=== PATIENT | male | born 1940 | race Caucasian/White ===

== ENCOUNTER 2017-02-14 13:31 | Inpatient (IN) | payer MEDICARE, OTHER ==
[~2017-02-14] VITALS: Ht 182.9 cm; Wt 75.2 kg
[2017-02-14 13:40] VITALS: BP 220/107; PULSE 74; RESP 16; TEMP 98.6; O2SAT 100
--- NOTE | 2017-02-14 14:18 | RADRPT ---
EXAM DATE/TIME: 02/14/2017 13:59 [facility] COMPARISON: No previous studies available for comparison. INDICATIONS : Left hip pain, fell MEDICAL HISTORY : None. SURGICAL HISTORY : None. ENCOUNTER: Initial ACUITY: 1 day PAIN SCORE: 8/10 LOCATION: Left Hip FINDINGS: There is a complete fracture of the left femoral neck with slight valgus angulation. CONCLUSION: Femoral neck fracture. Kevin Rajput MD on February 14, 2017 at 14:16 Board Certified Radiologist. This report was verified electronically.
--- NOTE | 2017-02-14 14:19 | RADRPT ---
EXAM DATE/TIME: 02/14/2017 14:01 [facility] COMPARISON: No previous studies available for comparison. INDICATIONS : Left hand pain, fell MEDICAL HISTORY : None. SURGICAL HISTORY : None. ENCOUNTER: Initial ACUITY: 1 day PAIN SCORE: 2/10 LOCATION: Left Hand FINDINGS: No definite fractures, or dislocations are identified. No definite lytic or sclerotic lesion is seen . Slight degenerative arthritis is present within multiple interphalangeal joints and first carpometa carpal joint. CONCLUSION: No definite fracture is seen for technique. Kevin Rajput MD on February 14, 2017 at 14:17 Board Certified Radiologist. This report was verified electronically.
[2017-02-14] MEDS ORDERED: LIDOCAINE HCL 1% 50 ML VIAL INFIL ONE (14:45)
[2017-02-14 14:56] LABS: AUTOMATED NEUTROPHIL # 3.4 TH/MM3 (1.8-7.7); BASOPHIL % 0.4 % (0.0-2.0); EOSINOPHIL % 0.5 % (0.0-4.0); HEMATOCRIT 40.8 % (39.0-51.0); HEMO FLAGS DIFF FINAL; LYMPH % 25.6 % (9.0-44.0); LYMPHOCYTE # 1.3 TH/MM3 (1.0-4.8); MEAN CELL VOLUME 92.4 FL (80.0-100.0); MEAN CORPUSCULAR HEMOGLOBIN 32.8 PG (27.0-34.0); MEAN CORPUSCULAR HGB CONC 35.5 % (32.0-36.0); NEUT % 66.5 % (16.0-70.0); PLATELET COUNT 167 TH/MM3 (150-450); RED BLOOD COUNT 4.42 MIL/MM3 (4.50-5.90); RED CELL DISTRIBUTION WIDTH 12.9 % (11.6-17.2); WHITE BLOOD COUNT 5.1 TH/MM3 (4.0-11.0)
[2017-02-14 15:12] LABS: APTT (PATIENT) 29.9 SEC (24.3-30.1); PROTHROMBIN TIME - PATIENT 11.4 SEC (9.8-11.6)
[2017-02-14 15:18] LABS: BICARBONATE 29.2 MEQ/L (21.0-32.0); POTASSIUM 3.7 MEQ/L (3.5-5.1)
[2017-02-14] MEDS ORDERED: MORPHINE SULFATE 8 MG/ML INJ IV PUSH ONE (15:30)
[2017-02-14 15:45] VITALS: BP 243/113; PULSE 64; RESP 16; O2SAT 95
--- NOTE | 2017-02-14 15:51 | PD ---
HPI Chief Complaint: Fall Time Seen by Provider: 13:47 Travel History International Travel<30 days: No Contact w/Intl Traveler<30days: No Traveled to known affect area: No History of Present Illness HPI Patient is a 76-year-old male who comes in after a trip and fall today. He is complaining of left hand pain as well as left hip pain. He says he was trying to get his walker and that trunk and he misstepped. There is no loss of consciousness. He denies any neck or back pain. He denies any numbness or tingling of his extremities. [facility] Social History Alcohol Use: No Tobacco Use: No Substance Use: No Allergies-Medications (Allergen,Severity, Reaction): Coded Allergies: Sulfa (Verified Allergy, Mild, 02/14/17) Review of Systems Except as stated in HPI: all other systems reviewed are Neg General / Constitutional: No: Fever, Chills Eyes: No: Blurred Vision HENT: No: Headaches, Lightheadedness Cardiovascular: No: Chest Pain or Discomfort Respiratory: No: Shortness of Breath Gastrointestinal: No: Nausea, Vomiting Musculoskeletal: Positive: Pain Skin: No Rash, No Change in Pigmentation Neurologic: No: Weakness, Dizziness Physical Exam Narrative GENERAL: Awake and alert, in no acute distress. SKIN: Focused skin assessment warm/dry. HEAD: Atraumatic. Normocephalic. EYES: Pupils equal and round. No scleral icterus. ENT: No nasal bleeding or discharge. Mucous membranes pink and moist. NECK: Trachea midline. No JVD. No cervical spine tenderness. CARDIOVASCULAR: Regular rate and rhythm. No murmur appreciated. RESPIRATORY: No accessory muscle use. Clear to auscultation. Breath sounds equal bilaterally. GASTROINTESTINAL: Abdomen soft, non-tender, nondistended. MUSCULOSKELETAL: No obvious deformities. No clubbing. No cyanosis. No edema. Left fourth distal phalanx is angulated. Tender to palpation of the left hip. No tenderness to the left knee or ankle. Pedal pulses intact. NEUROLOGICAL: Awake and alert. No obvious cranial nerve deficits. Motor grossly within normal limits. Normal speech. PSYCHIATRIC: Appropriate mood and affect; insight and judgment normal. Data Data Last Documented VS Vital Signs Date Time Temp Pulse Resp B/P Pulse Ox O2 Delivery O2 Flow Rate FiO2 02/14/17 13:50 100 Room Air 02/14/17 13:40 98.6 74 16 220/107 Orders Hand, Complete ([id number]) (02/14/17 ) Hip, Uni(Ap&Lat) W Ap Pelvis (02/14/17 ) Complete Blood Count With Diff (02/14/17 14:32) Basic Metabolic Panel (Bmp) (02/14/17 14:32) Act Partial Throm Time (Ptt) (02/14/17 14:32) Prothrombin Time / Inr (Pt) (02/14/17 14:32) Iv Access Insert/Monitor (02/14/17 14:32) Lidocaine 1% Inj (50 Ml) (Xylocaine 1% I (02/14/17 14:45) Morphine Inj (Morphine Inj) (02/14/17 15:30) Admit Order (Ed Use Only) (02/14/17 ) Labs Laboratory Tests Test 02/14/17 13:45 White Blood Count 5.1 TH/MM3 Red Blood Count 4.42 MIL/MM3 Hemoglobin 14.5 GM/DL Hematocrit 40.8 % Mean Corpuscular Volume 92.4 FL Mean Corpuscular Hemoglobin 32.8 PG Mean Corpuscular Hemoglobin 35.5 % Concent Red Cell Distribution Width 12.9 % Platelet Count 167 TH/MM3 Mean Platelet Volume 7.2 FL Neutrophils (%) (Auto) 66.5 % Lymphocytes (%) (Auto) 25.6 % Monocytes (%) (Auto) 7.0 % Eosinophils (%) (Auto) 0.5 % Basophils (%) (Auto) 0.4 % Neutrophils # (Auto) 3.4 TH/MM3 Lymphocytes # (Auto) 1.3 TH/MM3 Monocytes # (Auto) 0.4 TH/MM3 Eosinophils # (Auto) 0.0 TH/MM3 Basophils # (Auto) 0.0 TH/MM3 CBC Comment DIFF FINAL Differential Comment Prothrombin Time 11.4 SEC Prothromb Time International 1.0 RATIO Ratio Activated Partial 29.9 SEC Thromboplast Time Sodium Level 143 MEQ/L Potassium Level 3.7 MEQ/L Chloride Level 106 MEQ/L Carbon Dioxide Level 29.2 MEQ/L Anion Gap 8 MEQ/L Blood Urea Nitrogen 22 MG/DL Creatinine 0.99 MG/DL Estimat Glomerular Filtration 74 ML/MIN Rate Random Glucose 78 MG/DL Calcium Level 9.0 MG/DL MDM Medical Decision Making Medical Screen Exam Complete: Yes Emergency Medical Condition: Yes Differential Diagnosis Hip fracture versus finger fracture versus finger dislocation versus muscle strain Narrative Course Patient is a 76-year-old male comes in after a fall. Exam shows dislocation of his left fourth finger as well as pain to his left hip. X-ray of the hip performed shows a left femoral neck fracture. There is no fracture of the finger. IV established, labs sent. Labs show no acute abnormalities. Patient given pain medicine. Nerve block performed and finger was relocated and splinted. I spoke with Dr. Sanders's service and they will perform surgery tomorrow morning , he is to be nothing by mouth after midnight. Procedures Procedure Narrative 5 mL of 1% lidocaine used to performed a digital block on the left fourth finger. Traction countertraction was used to relocate the distal phalanx. Patient tolerated the procedure well. Splint applied. Diagnosis Primary Impression: Hip fracture Qualified Code: S72.002A - Hip fracture, left, closed, initial encounter Additional Impression: Finger dislocation Qualified Code: S63.259A - Finger dislocation, initial encounter Admitting Information Admitting Physician Requests: Admit Miri Granados MD Feb 14, 2017 15:51
[2017-02-14 16:22] VITALS: BP 182/88; PULSE 70; RESP 16; O2SAT 96
[2017-02-14] MEDS ORDERED: MIDO5TAB PO (16:51)
[2017-02-14] MEDS ORDERED: TYLE325T PO (16:51)
[2017-02-14] MEDS ORDERED: SINE25TA PO (16:51)
[2017-02-14] MEDS ORDERED: SERO50TA PO (16:51)
[2017-02-14] MEDS ORDERED: [UNRECOGNIZED DRUG - CODE] PO (16:51)
[2017-02-14] MEDS ORDERED: OMEP40CA2 PO (16:51)
[2017-02-14] MEDS ORDERED: ZOLO25TA PO (16:51)
[2017-02-14] MEDS ORDERED: AVOD0.5C PO (16:51)
[2017-02-14] MEDS ORDERED: CHOL1TAB42 PO (16:51)
[2017-02-14] MEDS ORDERED: POLY99.0 EACH EYE (16:51)
[2017-02-14] MEDS ORDERED: REST0.05 EACH EYE (16:51)
--- NOTE | 2017-02-14 17:05 | HHI.HP ---
HPI Service [facility] Hospitalists Primary Care Physician Chiki Sanchez MD Admission Diagnosis Hip Fracture Diagnoses: Chief Complaint: Left hip pain s/p fall Travel History International Travel<30 Days: No Contact w/Intl Traveler <30 Da: No Traveled to Known Affected Are: No History of Present Illness Written by Ariela Cleveland PA-C acting as scribe for Dr. Amezcua on 02/14/17 at 16:45. This is a 76-year-old male with past medical history significant for Parkinson' s disease, orthostatic hypotension, vitamin D deficiency, BPH, anxiety disorder and osteoporosis who presented to [facility] ED complaints of left hip pain following a fall. Patient states he was trying to help his get a walker into the back of their truck when he fell onto the left hand and left hip. He denies any head injury. He denies any loss of consciousness. Imaging obtained in the ED revealed a complete fracture left femoral neck with slight valgus angulation. Imaging of the left hand showed no fracture or dislocation. Patient has elevated blood pressure at this time with a 182/88. He is complaining of uncontrolled left hip pain. Review of Systems Except as stated in HPI: all other systems reviewed are Neg Past Family Social History Past Medical History Parkinson's disease Orthostatic hypotension BPH GERD Anxiety Osteoporosis Vitamin D deficiency Past Surgical History Hemorrhoidectomy Reported Medications Carbidopa/levodopa 25-100 mg tab 2 tablets po TID Selegiline 5mg po BID Avodart 0.5mg daily Midodrine 5mg po TID Tylenol 650mg po q6hr prn Sertraline 25mg po daily Omeprazole 40 mg po daily Seroquel 50mg po hs Restasis one gtt in each eye BID Vitamin D3 2000 units po daily Allergies: Coded Allergies: Sulfa (Verified Allergy, Mild, 02/14/17) Family History Father, diabetes Social History Patient denies any tobacco use. He reports drinking the occasional beer. Denies any illicit drug use. Patient is and lives with his at home. Physical Exam Vital Signs Vital Signs Date Time Temp Pulse Resp B/P Pulse Ox O2 Delivery O2 Flow Rate FiO2 02/14/17 16:22 70 16 182/88 96 Room Air 02/14/17 15:45 64 16 243/113 95 Room Air 02/14/17 13:50 100 Room Air 02/14/17 13:40 98.6 74 16 220/107 100 Physical Exam GENERAL: This is a well-nourished, well-developed patient, in no apparent distress. Awake and alert. SKIN: No rashes, ecchymoses or lesions. Cool and dry. HEAD: Atraumatic. Normocephalic. No temporal or scalp tenderness. EYES: Pupils equal round and reactive. Extraocular motions intact. No scleral icterus. No injection or drainage. ENT: Nose without bleeding or purulent drainage. Throat without erythema, tonsillar hypertrophy or exudate. Uvula midline. Airway patent. NECK: Trachea midline. No lymphadenopathy. Supple, nontender, no meningeal signs. CARDIOVASCULAR: Regular rate and rhythm without murmurs, gallops, or rubs. RESPIRATORY: Clear to auscultation. Breath sounds equal bilaterally. No wheezes , rales, or rhonchi. GASTROINTESTINAL: Abdomen soft, non-tender, nondistended. No hepato-splenomegaly , or palpable masses. No guarding. MUSCULOSKELETAL: 4th digit on left hand is splinted. Left leg is shortened and externally rotated. Posterior tibial and Dorsalis pedis pulses +2 bilaterally. Hand tremors noted. NEUROLOGICAL: Awake and alert. Normal speech. Laboratory Laboratory Tests Test 02/14/17 13:45 White Blood Count 5.1 Red Blood Count 4.42 Hemoglobin 14.5 Hematocrit 40.8 Mean Corpuscular Volume 92.4 Mean Corpuscular Hemoglobin 32.8 Mean Corpuscular Hemoglobin 35.5 Concent Red Cell Distribution Width 12.9 Platelet Count 167 Mean Platelet Volume 7.2 Neutrophils (%) (Auto) 66.5 Lymphocytes (%) (Auto) 25.6 Monocytes (%) (Auto) 7.0 Eosinophils (%) (Auto) 0.5 Basophils (%) (Auto) 0.4 Neutrophils # (Auto) 3.4 Lymphocytes # (Auto) 1.3 Monocytes # (Auto) 0.4 Eosinophils # (Auto) 0.0 Basophils # (Auto) 0.0 CBC Comment DIFF FINAL Differential Comment Prothrombin Time 11.4 Prothromb Time International 1.0 Ratio Activated Partial 29.9 Thromboplast Time Sodium Level 143 Potassium Level 3.7 Chloride Level 106 Carbon Dioxide Level 29.2 Anion Gap 8 Blood Urea Nitrogen 22 Creatinine 0.99 Estimat Glomerular Filtration 74 Rate Random Glucose 78 Calcium Level 9.0 Result Diagram: 02/14/17 1345 02/14/17 1345 Imaging Last Impressions Hip and Pelvis X-Ray 02/14/17 0000 Signed Impressions: Service Date/Time: Tuesday, February 14, 2017 13:59 - CONCLUSION: Femoral neck fracture. Kevin Rajput MD Hand X-Ray 02/14/17 0000 Signed Impressions: Service Date/Time: Tuesday, February 14, 2017 14:01 - CONCLUSION: No definite fracture is seen for technique. Kevin Rajput MD Assessment and Plan Assessment and Plan 76-year-old male with past medical history significant for Parkinson's disease, orthostatic hypotension, vitamin D deficiency, BPH, anxiety disorder and osteoporosis who presented to [facility] ED complaints of left hip pain following a fall. Left femoral neck fracture status post fall - xray of the left hip personally reviewed revealing left femoral neck fracture - Ortho consulted - Dr. Raza already contacted by ED service - pain management - NPO after MN Orthostatic hypotension - Patient is hypotensive presently due to uncontrolled left hip pain - Optimize pain control - Hold home Midodrine for now - monitor BP Parkinson's disease - Resume home Sinemet and Eldepryl Other chronic medical conditions include vitamin D deficiency, BPH, GERD and anxiety: Stable at this time we'll continue home medication as indicated. This note was transcribed by adria []. I, Dr. Victorino Juares personally performed the history, physical exam, and medical decision making; and confirmed the accuracy of the information in the transcribed note. Authenticated by Dr. Victorino Juares on 02/14/17 at 18:26. Discussed Condition With patient and ED physician Physician Certification 2 Midnight Certification Type: Admission for Inpatient Services Order for Inpatient Services The services are ordered in accordance with Medicare regulations or non- Medicare payer requirements, as applicable. In the case of services not specified as inpatient-only, they are appropriately provided as inpatient services in accordance with the 2-midnight benchmark. Estimated LOS (days): 3 3 days is the estimated time the patient will need to remain in the hospital, assuming treatment plan goals are met and no additional complications. Post-Hospital Plan: Not yet determined Ariela Cleveland Feb 14, 2017 17:05 Victorino Dawson MD Feb 14, 2017 18:26
[2017-02-14 17:24] VITALS: BP 136/75; PULSE 84; RESP 16; O2SAT 96
[2017-02-14] MEDS ORDERED: SODIUM CHLORIDE 0.9% FLUSH 10 ML FLUSH IV FLUSH PRN (18:30)
[2017-02-14] MEDS ORDERED: ONDANSETRON HCL 4 MG/2 ML VIAL IVP PRN (18:30)
[2017-02-14] MEDS ORDERED: BISACODYL 10 MG SUPP RECTAL PRN (18:30)
[2017-02-14] MEDS ORDERED: ARTIFICIAL TEARS OPTH SOLN 15 ML BTL EACH EYE PRN (18:30)
[2017-02-14] MEDS ORDERED: LACTULOSE SYRUP 20 GM/30 ML CUP PO PRN (18:30)
[2017-02-14 18:51] VITALS: BP 154/74; PULSE 66; RESP 16; O2SAT 98
[2017-02-14] MEDS ORDERED: LACTATED RINGER'S 1000 ML IV PRN (20:30)
[2017-02-14] MEDS ORDERED: SODIUM CHLORID 0.9% 500 ML IV PRN (20:30)
[2017-02-14] MEDS ORDERED: METOPROLOL TARTRATE 25 MG TAB PO PRN (20:30)
[2017-02-14] MEDS ORDERED: CHLORHEXIDINE GLUCONATE 2 % 1 PACK (2 CLOTHS) TOPICAL PRN (20:30)
[2017-02-14] MEDS ORDERED: POVIDONE IODINE 5% (ANTISEPSIS KIT) 4 APPLICATIONS EACH NARE PRN (20:30)
[2017-02-14] MEDS ORDERED: INSULIN HUMAN REGULAR 1,000 UNITS/10 ML VIAL SQ PRN (20:30)
[2017-02-14 20:50] VITALS: BP 157/81; PULSE 112; RESP 19; TEMP 96.9; O2SAT 92
[2017-02-14] MEDS ORDERED: PTOWN: RESTASIS (CYCLOSPORINE) 0.05% 1 DROP EACH EYE BID EACH EYE SCH (21:00)
[2017-02-14] MEDS ORDERED: SODIUM CHLORIDE 0.9% FLUSH 10 ML FLUSH IV FLUSH SCH (21:00)
[2017-02-14] MEDS: HEPARIN SODIUM - SQ 10,000 UNITS/ML VIAL SQ SCH (21:27)
[2017-02-14] MEDS: DOCUSATE SODIUM 50 MG/SENNA 8.6 MG TAB PO SCH (21:27)
[2017-02-14] MEDS: QUEtiapine FUMARATE 25 MG TAB PO SCH (21:27)
[2017-02-14] MEDS: SELEGILINE HCL 5 MG CAP PO SCH (21:27)
[2017-02-14] MEDS: SODIUM CHLOR 0.45% 1000 ML INJ 1,000 ML IV SCH (21:27)
[2017-02-14] MEDS: ACETAMINOPHEN 325 MG TAB PO PRN (21:47)
[2017-02-15 00:48] VITALS: BP 161/77; PULSE 62; RESP 18; TEMP 96.7; O2SAT 97
[2017-02-15 04:12] VITALS: BP 185/89; PULSE 61; RESP 18; TEMP 96.7; O2SAT 98
[2017-02-15] MEDS: HEPARIN SODIUM - SQ 10,000 UNITS/ML VIAL SQ SCH (05:23)
--- NOTE | 2017-02-15 06:54 | PD.ORT.PN ---
Subjective Subjective Remarks Tian is 76-year-old male with Parkinson's. He had mechanical fall and has pain to his left hip. He has no other complaints. He has some confusion Objective Vitals Vital Signs Date Time Temp Pulse Resp B/P Pulse Ox O2 Delivery O2 Flow Rate FiO2 02/15/17 04:12 96.7 61 18 185/89 98 02/15/17 00:48 96.7 62 18 161/77 97 02/14/17 20:50 96.9 112 19 157/81 92 02/14/17 18:51 66 16 154/74 98 Room Air 02/14/17 17:24 84 16 136/75 96 Room Air 02/14/17 16:22 70 16 182/88 96 Room Air 02/14/17 15:45 64 16 243/113 95 Room Air 02/14/17 13:50 100 Room Air 02/14/17 13:40 98.6 74 16 220/107 100 I/O 02/14/17 02/14/17 02/14/17 02/15/17 02/15/17 02/15/17 07:00 15:00 23:00 07:00 15:00 23:00 Intake Total 240 ml 490 ml Balance 240 ml 490 ml Intake Oral 240 ml 0 ml IV Total 490 ml # Voids 2 3 # Bowel Movements 0 0 Result Diagram: 02/14/17 1345 02/14/17 1345 Other Results Laboratory Tests Test 02/14/17 13:45 Prothrombin Time 11.4 SEC (9.8-11.6) Prothromb Time International 1.0 RATIO Ratio Imaging Last 72 hours Impressions Hip and Pelvis X-Ray 02/14/17 0000 Signed Impressions: Service Date/Time: Tuesday, February 14, 2017 13:59 - CONCLUSION: Femoral neck fracture. Kevin Rajput MD Hand X-Ray 02/14/17 0000 Signed Impressions: Service Date/Time: Tuesday, February 14, 2017 14:01 - CONCLUSION: No definite fracture is seen for technique. Kevin Rajput MD Objective Remarks Bilateral upper extremities: Full range of motion and neurovascularly intact. Right lower extremity: Full range of motion and neurovascularly intact Left lower extremity no pain to palpation of knee or ankle. Distally intact sensation. Cogwheel rigidity through range of motion. Pain to palpation of hip Assessment & Plan Assessment and Plan Minimally displaced left femoral neck fracture Surgery is needed for stabilization of left femoral neck. If fracture displaces a hip replacement will be necessary. We will plan for surgery this morning. Nursing staff is trying to get consents from son. Nothing by mouth Karl Mckeon Jr. PIPER Feb 15, 2017 06:54
--- NOTE | 2017-02-15 07:00 | EKG ---
Date Performed: 02/14/2017 Time Performed: 20:57:21 PTAGE: 76 years EKG: Sinus rhythm NONSPECIFIC INTRAVENTRICULAR CONDUCTION DELAY MINIMAL VOLTAGE CRITERIA FOR LVH, CONSIDER NORMAL VARI ANT NONSPECIFIC T-WAVE ABNORMALITY BORDERLINE ECG NO PREVIOUS TRACING DOCTOR: Ludin Jordan Interpretating Date/Time 02/15/2017 06:58:54
[2017-02-15] MEDS ORDERED: VANCOMYCIN HCL 1000 MG VIAL ONE (07:06)
[2017-02-15] MEDS ORDERED: GENTAMICIN SULFATE 80 MG/2 ML VIAL ONE (07:07)
[2017-02-15] MEDS ORDERED: SODIUM CHLOR 0.9% 250 ML INJ 250 ML ONE (07:07)
[2017-02-15 07:12] LABS: AUTOMATED NEUTROPHIL # 5.4 TH/MM3 (1.8-7.7); BASOPHIL % 0.3 % (0.0-2.0); EOSINOPHIL # 0.1 TH/MM3 (0-0.4); EOSINOPHIL % 1.5 % (0.0-4.0); HEMATOCRIT 39.2 % (39.0-51.0); HEMO FLAGS DIFF FINAL; LYMPH % 11.8 % (9.0-44.0); LYMPHOCYTE # 0.8 TH/MM3 (1.0-4.8); MEAN CELL VOLUME 91.6 FL (80.0-100.0); MEAN CORPUSCULAR HEMOGLOBIN 32.6 PG (27.0-34.0); MEAN CORPUSCULAR HGB CONC 35.6 % (32.0-36.0); MONO % 8.2 % (0.0-8.0); NEUT % 78.2 % (16.0-70.0); PLATELET COUNT 123 TH/MM3 (150-450); RED BLOOD COUNT 4.28 MIL/MM3 (4.50-5.90); RED CELL DISTRIBUTION WIDTH 12.9 % (11.6-17.2); WHITE BLOOD COUNT 6.9 TH/MM3 (4.0-11.0)
[2017-02-15] MEDS ORDERED: ceFAZolin 2 GM PREMIX 50 ML ONE (07:30)
[2017-02-15] MEDS ORDERED: ACETAMINOPHEN 1000 MG/100 ML VIAL IV ONE (07:34)
[2017-02-15] MEDS ORDERED: FAMOTIDINE 20 MG/2 ML VIAL ONE (07:34)
[2017-02-15] MEDS ORDERED: MIDAZOLAM HCL 2 MG/2 ML VIAL ONE (07:34)
[2017-02-15 07:36] LABS: ALT (GPT) 18 U/L (12-78); ANION GAP 8 MEQ/L (5-15); AST (GOT) 18 U/L (15-37); BLOOD UREA NITROGEN 19 MG/DL (7-18); CHLORIDE 102 MEQ/L (98-107); GLOMERULAR FILTRATION RATE 79 ML/MIN (>89); POTASSIUM 3.8 MEQ/L (3.5-5.1); SODIUM (NA) 139 MEQ/L (136-145)
[2017-02-15 07:41] LABS: ALKALINE PHOSPHATASE 44 U/L (45-117); TOTAL BILIRUBIN ADULT 1.2 MG/DL (0.2-1.0)
[2017-02-15] MEDS ORDERED: BUPIVACAINE/EPINEPHRINE 0.75% PF 30 ML VIAL INFIL ONE (07:57)
--- NOTE | 2017-02-15 08:12 | MB ---
cc: IBIS MARIE DATE OF ADMISSION 02/14/2017 DATE OF CONSULTATION 02/15/2017 REASON FOR CONSULTATION Left femoral neck fracture. CONSULTING PHYSICIAN Dr. Hills REASON FOR CONSULTATION Left femoral neck fracture. HISTORY Mr. Sharp is a 76-year male who has a history of Parkinson's disease. He had a fall. He normally uses a walker. He was trying to load the walker into the back of their vehicle. He lost his balance and fell. He had immediate left hip pain. He presented to the emergency room where x-rays revealed a mildly displaced left femoral neck fracture. He is currently awake and alert on the orthopedic floor. His only complaint is his left hip. The pain is worse with movement and is improved with rest. PAST MEDICAL HISTORY ILLNESSES 1. Parkinson's disease. 2. Hypotension. 3. Reflux. 4. BPH. 5. Osteoporosis. 6. Vitamin D deficiency. PAST SURGICAL HISTORY Hemorrhoidectomy. MEDICATIONS 1. Carbidopa/levodopa. 2. Avodart. 3. Midrodine. 4. Tylenol. 5. Sertraline. 6. Omeprazole. 7. Seroquel. 8. Restasis. 9. Vitamin D. ALLERGIES SULFA. FAMILY HISTORY Positive for diabetes in the father. SOCIAL HISTORY The patient does drink occasional beer. He denies tobacco or drug use. He is and lives at home his . REVIEW OF SYSTEMS The patient denies headache, visual changes, neck pain, chest pain, shortness of breath, abdominal pain, nausea, vomiting or recent weight loss. He complains of left hip pain. The pain is worse with movement. PHYSICAL EXAMINATION GENERAL: The patient is a pleasant 76-year-old male. He is awake. He answers most questions appropriately. He appears well-developed, well-nourished. VITAL SIGNS: Temperature 96.7, pulse 61, respirations 18, blood pressure 185/89, O2 sat 98% on room air. HEAD: The patient is normocephalic. Pupils are equal. NECK: Soft, nontender. Trachea is midline. ABDOMEN: Soft, nontender, nondistended. EXTREMITIES: Examination of bilateral upper extremities reveals no pain with shoulder, elbow or wrist motion. He has intact sensation in all fingers. Radial pulses are palpable bilaterally. Sensation is intact in all fingers. Examination of he right leg reveals no significant pain with hip, knee or ankle motion. Skin is intact. Dorsalis pedis pulses palpable. Skin is intact. Examination of the left leg reveals pain with any hip motion. He has minimal tenderness of his knee tibia or ankle. Skin is intact. Dorsalis pedis pulses palpable. Sensation is intact in both feet. X-RAYS X-rays of the left hip are reviewed. The x-rays reveal a minimally displaced left femoral neck fracture. IMPRESSION 1. Minimally displaced left femoral neck fracture. 2. Osteoporosis. 3. Parkinson's disease. 4. Orthostatic hypotension. PLAN The treatment options were discussed with the patient. At this point I would recommend attempted left hip reduction and percutaneous pinning. If the fracture displaces completely, he may need a left hip hemiarthroplasty. The risks of surgery include bleeding, infection, injury to his arteries, nerves and blood vessels, nonunion, malunion, avascular necrosis, need for hip replacement as well as medical complications including blood clot, stroke, heart attack and . All questions were answered. I will plan on surgery today. A mid-level provider in my office, nurse practitioner or PA, may see this patient on a follow-up basis and continue to implement the objective of this plan including: Starting or adjusting medications, injections of muscle, tendon, bursa or joints, cast application, orthotic or brace application, physical therapy, further radiographic studies including x-ray, MRI, CT, ultrasounds or bone scan, vascular studies, neurologic studies, or other specialist consultations, and proceeding with surgical management as appropriate. MD BOUCHRA Trinidad/HANS /7:44 AM /8:04 AM
--- NOTE | 2017-02-15 08:20 | PD.OP ---
cc: Naun Sanders MD Operative Report Date of Surgery: Feb 15, 2017 Preoperative Diagnosis: Minimally displaced left femoral neck fracture Postoperative Diagnosis: Procedure: Left hip pinning Anesthesia: Gen. Surgeon: Naun Sanders Sofa Cover Inspector(s): JUAN DIEGO Polk PA-C The surgical procedure was assisted by my physician sound assistant. My P.A. presence was necessary throughout this case for the manipulation and positioning of the surgical extremity. My P.A. was assisting me throughout the duration of this procedure. The skill set of a physician sound assistant was medically necessary to complete this procedure. During the surgical case the surgical garment fitter was working at the back table and the physician sound assistant was directly assisting me. Operation and Findings: Plan of activity: TTWB Implants used: ITS 7.3 cannulated screws Patient was seen and evaluated preoperatively. The patient has significant hip pain from impacted femoral neck fracture. The risk and benefits of surgery were discussed in depth with the patient to include bleeding infection nonunion malunion, avascular necrosis and need for hip replacement painful hardware as well as medical competitions including but not stroke heart attack and . Informed consent was obtained. Operative site was marked. Patient was brought to the operating room and placed on fracture table. IV sedation was administered by anesthesiologist. Timeout procedure was performed. Hip and leg were prepped with alcohol followed by Hibiclens and draped in the usual sterile fashion. IV antibiotics were given prior to incision. Procedure began with evaluation of fracture under fluoroscopy. Leg was gently manipulated to improve alignment. Excellent reduction was achieved. Fluoroscopy was used to confirm reduction. A three cm incision was along the lateral aspect of the proximal femur . Subcutaneous tissue was dissected bluntly. Three guidepins were placed through the lateral cortex of the proximal femur. Guide pins were placed in an inverted triangle position. Guide pins were advanced across the fracture site into the femoral head. Fluoroscopy confirmed appropriate guidepin placement. The screw lengths were measured. A cannulated drill was placed over each of the guide pins. Appropriate length ITS 7.3 cannulated screws were placed over the guidepins. Good compression was applied across the fracture. Final fluoroscopy revealed well aligned fracture with well-placed hardware. Incision was closed with 3-0 Vicryl and teresa. Sterile dressings were applied. Patient was awakened and transferred to recovery room. Naun Sanders MD Feb 15, 2017 08:20
[2017-02-15] MEDS ORDERED: SODIUM CHLORIDE 0.9% FLUSH 10 ML FLUSH IV FLUSH PRN (08:30)
[2017-02-15] MEDS ORDERED: Post-op Orders (for Pharmacy) MISC XX ONE (08:30)
[2017-02-15] MEDS ORDERED: MORPHINE SULFATE 4 MG/ML INJ IV PUSH PRN (08:30)
[2017-02-15] MEDS ORDERED: ERGOCALCIFEROL (VIT D2) 50,000 UNIT CAP PO ONE (08:30)
[2017-02-15] MEDS ORDERED: DO NOT ADM ANY ANTICOAGULANT DRUGS PRN (08:38)
[2017-02-15] MEDS ORDERED: fentaNYL CITRATE 250 MCG/5 ML AMP ONE (08:47)
[2017-02-15] MEDS: DOCUSATE SODIUM 50 MG/SENNA 8.6 MG TAB PO SCH ×2 (09:00→20:31)
[2017-02-15] MEDS ORDERED: CHOLECALCIFEROL (VIT D3) 1000 UNIT TAB PO SCH (09:00)
[2017-02-15] MEDS: SODIUM CHLORIDE 0.9% FLUSH 10 ML FLUSH IV FLUSH SCH ×2 (09:00→20:32)
[2017-02-15] MEDS: CARBIDOPA/LEVODOPA 25 MG/100 MG TAB PO SCH ×3 (10:13→17:02)
[2017-02-15] MEDS: FINASTERIDE 5 MG TAB PO SCH (10:14)
[2017-02-15] MEDS: PANTOPRAZOLE SOD 40 MG DELAYED RELEASE TAB PO SCH (10:14)
[2017-02-15] MEDS: SERTRALINE HCL 50 MG TAB PO SCH (10:14)
[2017-02-15] MEDS: SELEGILINE HCL 5 MG CAP PO SCH ×2 (10:45→20:31)
[2017-02-15] MEDS: SODIUM CHLOR 0.45% 1000 ML INJ 1,000 ML IV SCH ×2 (10:45→20:32)
[2017-02-15] MEDS: CHOLECALCIFEROL (VIT D3) 5000 UNIT CAP PO SCH (10:45)
[2017-02-15] MEDS: ACETAMINOPHEN 325 MG TAB PO PRN (10:46)
[2017-02-15] MEDS ORDERED: PROPOFOL 200 MG/20 ML AMP IV ONE (11:14)
[2017-02-15] MEDS ORDERED: ePHEDrine/NS 25 MG/5 ML SYR IV ONE (11:14)
[2017-02-15] MEDS ORDERED: NEOSTIGMINE 3 MG/3 ML SYR IV ONE (11:15)
[2017-02-15] MEDS ORDERED: ONDANSETRON HCL 4 MG/2 ML VIAL IV PUSH ONE (11:15)
[2017-02-15 11:29] VITALS: BP 182/85; PULSE 59; RESP 17; TEMP 95.6; O2SAT 99
--- NOTE | 2017-02-15 12:50 | RADRPT ---
EXAM DATE/TIME: 02/15/2017 08:10 [facility] COMPARISON: No previous studies available for comparison. INDICATIONS : ORIF left hip pinning. MEDICAL HISTORY : None. SURGICAL HISTORY : None. ENCOUNTER: Subsequent ACUITY: 2 days PAIN SCORE: Non-responsive. LOCATION: Left hip. FINDINGS: A two view examination of the left hip was performed. Status post ORIF. The primary and secondary tr abecular pattern of the femoral neck is intact. The hip joint is of normal width without significant sclerosis or bony hypertrophy. The acetabulum is grossly intact. CONCLUSION: Status post ORIF in anatomic alignment. Tian Murphy MD FACR on February 15, 2017 at 12:48 Board Certified Radiologist. This report was verified electronically.
[2017-02-15 15:33] VITALS: BP 179/90; PULSE 68; RESP 17; TEMP 96.5; O2SAT 95
[2017-02-15] MEDS: ACETAMINOPHEN/HYDROcodone 325 MG/5 MG TAB PO PRN (18:49)
--- NOTE | 2017-02-15 19:37 | HHI.PR ---
Subjective Remarks Patient is confused BP elevated Patient complains of pain in the left hip Objective Vitals Vital Signs Date Time Temp Pulse Resp B/P Pulse Ox O2 Delivery O2 Flow Rate FiO2 02/15/17 15:33 96.5 68 17 179/90 95 02/15/17 11:29 95.6 59 17 182/85 99 02/15/17 09:30 97.4 54 13 170/78 100 Nasal Cannula 2 02/15/17 09:15 63 13 179/85 100 Nasal Cannula 2 02/15/17 09:00 49 13 175/80 100 Nasal Cannula 3 02/15/17 08:45 58 11 173/76 100 Simple Mask 6 02/15/17 08:37 97.0 55 10 185/83 100 Simple Mask 6 02/15/17 04:12 96.7 61 18 185/89 98 02/15/17 00:48 96.7 62 18 161/77 97 02/14/17 20:50 96.9 112 19 157/81 92 I/O 02/14/17 02/14/17 02/14/17 02/15/17 02/15/17 02/15/17 07:00 15:00 23:00 07:00 15:00 23:00 Intake Total 240 ml 490 ml 1684 ml Output Total 250 ml Balance 240 ml 490 ml 1434 ml Intake Oral 240 ml 0 ml 500 ml IV Total 490 ml 384 ml Other 800 ml Output Urine Total 200 ml Estimated Blood Loss 50 ml # Voids 2 3 3 # Bowel Movements 0 0 0 Result Diagram: 02/15/17 0653 02/15/17 0643 Imaging Last Impressions Hip X-Ray 02/15/17 0000 Signed Impressions: Service Date/Time: Wednesday, February 15, 2017 08:10 - CONCLUSION: Status post ORIF in anatomic alignment. Tian Murphy MD FACR Hip and Pelvis X-Ray 02/14/17 0000 Signed Impressions: Service Date/Time: Tuesday, February 14, 2017 13:59 - CONCLUSION: Femoral neck fracture. Kevin Rajput MD Hand X-Ray 02/14/17 0000 Signed Impressions: Service Date/Time: Tuesday, February 14, 2017 14:01 - CONCLUSION: No definite fracture is seen for technique. Kevin Rajput MD Objective Remarks GENERAL: This is a well-nourished, well-developed patient, in no apparent distress. Awake and alert. SKIN: No rashes, ecchymoses or lesions. Cool and dry. HEAD: Atraumatic. Normocephalic. No temporal or scalp tenderness. EYES: Pupils equal round and reactive. Extraocular motions intact. No scleral icterus. No injection or drainage. ENT: Nose without bleeding or purulent drainage. Throat without erythema, tonsillar hypertrophy or exudate. Uvula midline. Airway patent. NECK: Trachea midline. No lymphadenopathy. Supple, nontender, no meningeal signs. CARDIOVASCULAR: Regular rate and rhythm without murmurs, gallops, or rubs. RESPIRATORY: Clear to auscultation. Breath sounds equal bilaterally. No wheezes , rales, or rhonchi. GASTROINTESTINAL: Abdomen soft, non-tender, nondistended. No hepato-splenomegaly , or palpable masses. No guarding. MUSCULOSKELETAL: 4th digit on left hand is splinted. Posterior tibial and Dorsalis pedis pulses +2 bilaterally. Hand tremors noted. There is a surgical dressing over the left hip which is C/D/I. NEUROLOGICAL: Awake and alert. Normal speech. Procedures sp left hi pinning Medications and IVs Current Medications Medications (Trade) Dose Ordered Sig/Shalonda Route Start Time Stop Time Status Last Admin (07/27 NS 1000 ml Inj) 1,000 ml @ 75 mls/hr [id number] IV 02/14/17 18:22 02/15/17 10:45 (Tylenol) 650 mg Q4H PRN PO 02/14/17 18:30 02/15/17 10:46 (Zofran Inj) 4 mg Q6H PRN IVP 02/14/17 18:30 (Abi-Colace) 1 tab BID PO 02/14/17 21:00 02/14/17 21:27 (Milk Of Magnesia Liq) 30 ml Q12H PRN PO 02/14/17 18:30 (Senokot) 17.2 mg Q12H PRN PO 02/14/17 18:30 (Dulcolax Supp) 10 mg DAILY PRN RECTAL 02/14/17 18:30 (Lactulose Liq) 30 ml DAILY PRN PO 02/14/17 18:30 (Sinemet 25-100 Mg) 2 tab TID PO 02/15/17 09:00 02/15/17 17:02 (Tears Naturale Opth Soln) 1 drop BID PRN EACH EYE 02/14/17 18:30 (Eldepryl) 5 mg BID PO 02/14/17 21:00 02/15/17 10:45 (Zoloft) 25 mg DAILY PO 02/15/17 09:00 02/15/17 10:14 Patient Own Medication PT OWN MED: RESTASIS (CYCLOSPORI... BID EACH EYE 02/14/17 21:00 Hold (Proscar) 5 mg DAILY PO 02/15/17 09:00 02/15/17 10:14 (Protonix) 40 mg DAILY PO 02/15/17 09:00 02/15/17 10:14 Quetiapine Fumarate 50 mg 50 mg HS PO 02/14/17 21:00 02/14/17 21:27 Lactated Ringer's 1,000 ml @ 30 mls/hr Q24H PRN IV 02/14/17 20:30 02/17/17 20:29 (NS 500 ml Inj) 500 ml @ 30 mls/hr [id number] PRN IV 02/14/17 20:30 02/17/17 20:29 (NS Flush) 2 ml UNSCH PRN IV FLUSH 02/15/17 08:30 (NS Flush) 2 ml BID IV FLUSH 02/15/17 09:00 02/15/17 09:00 (Lovenox Inj) 30 mg Q24H SQ 02/15/17 21:00 Acetaminophen/ Hydrocodone Bitart 1 tab 1 tab Q3H PRN PO 02/15/17 08:30 02/15/17 18:49 (Ancef Inj/NS Inj) 100 ml @ 200 mls/hr Q6H IV 02/15/17 14:00 02/16/17 02:29 02/15/17 14:04 (Morphine Inj) 3 mg Q3H PRN IV PUSH 02/15/17 08:30 (Vitamin D3) 5,000 units DAILY PO 02/15/17 09:00 02/15/17 10:45 Miscellaneous Information ALL NURSING DEPARTME... UNSCH PRN .XX 02/15/17 08:38 02/16/17 08:37 (Vasotec Inj) 1.25 mg Q6H PRN IV PUSH 02/15/17 18:30 (Norvasc) 5 mg DAILY PO 02/15/17 18:30 A/P Problem List: (1) Finger dislocation ICD Code: S63.259A Status: Acute (2) Fracture of femoral neck, left, closed ICD Code: S72.002A Status: Acute (3) Uncontrolled hypertension ICD Code: I10 Status: Acute (4) Parkinson's disease ICD Code: G20 Status: Acute Assessment and Plan 76-year-old male with past medical history significant for Parkinson's disease, orthostatic hypotension, vitamin D deficiency, BPH, anxiety disorder and osteoporosis who presented to [facility] ED complaints of left hip pain following a fall. Left femoral neck fracture status post fall - xray of the left hip personally reviewed revealing left femoral neck fracture - Ortho consulted - patient sp Left hip pinning on 02/15/17 - Continue pain management as per orthopedic surgery recommendations. Orthostatic hypotension - Patient Hypertensive. - Continue to hold Midodrine. Uncontrolled HTN - BP severely elevated with a SBP the 170 to 180's. - Will start patient on amlodipine 5 mg po daily, Start IV Vasotec PRN. Parkinson's disease - Continue Sinemet and Eldepryl Problem Qualifiers (1) Finger dislocation: Qualified Code: S63.259A - Finger dislocation, initial encounter Victorino Dawson MD Feb 15, 2017 19:37
[2017-02-15] MEDS: MAGNESIUM HYDROXIDE SUSP 30 ML CUP PO PRN (20:29)
[2017-02-15] MEDS: QUEtiapine FUMARATE 25 MG TAB PO SCH (20:31)
[2017-02-15] MEDS: amLODIPine BESYLATE 5 MG TAB PO SCH (20:31)
[2017-02-15] MEDS: SENNOSIDES 8.6 MG TAB PO PRN (20:31)
[2017-02-15] MEDS: ENOXAPARIN SODIUM 30 MG/0.3 ML SYRINGE SQ SCH (20:31)
[2017-02-15] MEDS: ENALAPRILAT 1.25 MG/ML VIAL IV PUSH PRN (20:31)
[2017-02-15 21:54] VITALS: BP 158/79; PULSE 75
[2017-02-15 22:00] VITALS: BP 205/95; PULSE 81; RESP 19; TEMP 98; O2SAT 93
[2017-02-16] VITALS: BP 153/81; PULSE 86; RESP 19; TEMP 98.2; O2SAT 93
[2017-02-16 04:00] VITALS: BP 161/90; PULSE 68; RESP 18; TEMP 97.1; O2SAT 95
[2017-02-16] MEDS: ENALAPRILAT 1.25 MG/ML VIAL IV PUSH PRN (04:57)
--- NOTE | 2017-02-16 07:03 | PD.ORT.PN ---
Subjective Subjective Remarks Resting comfortably with no new complaints Objective Vitals Vital Signs Date Time Temp Pulse Resp B/P Pulse Ox O2 Delivery O2 Flow Rate FiO2 02/16/17 04:00 97.1 68 18 161/90 95 02/16/17 00:00 98.2 86 19 153/81 93 02/15/17 22:00 98.0 81 19 205/95 93 02/15/17 21:54 75 158/79 02/15/17 18:53 Room Air 02/15/17 15:33 96.5 68 17 179/90 95 02/15/17 11:29 95.6 59 17 182/85 99 02/15/17 09:30 97.4 54 13 170/78 100 Nasal Cannula 2 02/15/17 09:15 63 13 179/85 100 Nasal Cannula 2 02/15/17 09:00 49 13 175/80 100 Nasal Cannula 3 02/15/17 08:45 58 11 173/76 100 Simple Mask 6 02/15/17 08:37 97.0 55 10 185/83 100 Simple Mask 6 I/O 02/15/17 02/15/17 02/15/17 02/16/17 02/16/17 02/16/17 07:00 15:00 23:00 07:00 15:00 23:00 Intake Total 490 ml 1684 ml 1026 ml 722 ml Output Total 250 ml Balance 490 ml 1434 ml 1026 ml 722 ml Intake Oral 0 ml 500 ml 480 ml 300 ml IV Total 490 ml 384 ml 546 ml Packed Cells 422 ml Other 800 ml Output Urine Total 200 ml Estimated Blood Loss 50 ml # Voids 3 3 3 4 # Bowel Movements 0 0 0 0 Result Diagram: 02/15/17 0653 02/15/17 0643 Imaging Last 72 hours Impressions Hip and Pelvis X-Ray 02/14/17 0000 Signed Impressions: Service Date/Time: Tuesday, February 14, 2017 13:59 - CONCLUSION: Femoral neck fracture. Kevin Rajput MD Hand X-Ray 02/14/17 0000 Signed Impressions: Service Date/Time: Tuesday, February 14, 2017 14:01 - CONCLUSION: No definite fracture is seen for technique. Kevin Rajput MD Objective Remarks Bilateral upper extremities: Full range of motion and neurovascularly intact. Right lower extremity: Full range of motion and neurovascularly intact Left lower extremity: Clean dry dressings intact. Minimal swelling. no pain to palpation of knee or ankle. Distally intact sensation. Cogwheel rigidity through range of motion. Assessment & Plan Assessment and Plan Minimally displaced left femoral neck fracture PCP POD 1 PT toe-touch weightbearing left lower extremity Lovenox Incentive spirometry Plan for discharge to rehabilitation when bed available Follow-up appointment with Dr. Sanders or PA in 2 weeks Karl Mckeon Jr. Feb 16, 2017 07:03
[2017-02-16 07:24] LABS: HEMATOCRIT 37.9 % (39.0-51.0)
[2017-02-16 07:28] LABS: REVIEW FLAG FINAL
[2017-02-16 08:00] VITALS: BP 182/92; PULSE 76; RESP 18; TEMP 96.8; O2SAT 96
[2017-02-16] MEDS: SODIUM CHLORIDE 0.9% FLUSH 10 ML FLUSH IV FLUSH SCH ×2 (09:00→23:45)
[2017-02-16] MEDS: SODIUM CHLOR 0.45% 1000 ML INJ 1,000 ML IV SCH ×2 (10:22→23:45)
[2017-02-16] MEDS: CARBIDOPA/LEVODOPA 25 MG/100 MG TAB PO SCH ×3 (11:07→17:25)
[2017-02-16] MEDS: SERTRALINE HCL 50 MG TAB PO SCH (11:07)
[2017-02-16] MEDS: PANTOPRAZOLE SOD 40 MG DELAYED RELEASE TAB PO SCH (11:08)
[2017-02-16] MEDS: amLODIPine BESYLATE 5 MG TAB PO SCH (11:08)
[2017-02-16] MEDS: DOCUSATE SODIUM 50 MG/SENNA 8.6 MG TAB PO SCH ×2 (11:08→23:44)
[2017-02-16] MEDS: SELEGILINE HCL 5 MG CAP PO SCH ×2 (11:08→23:44)
[2017-02-16] MEDS: FINASTERIDE 5 MG TAB PO SCH (11:08)
[2017-02-16] MEDS: CHOLECALCIFEROL (VIT D3) 5000 UNIT CAP PO SCH (11:08)
[2017-02-16] MEDS: ACETAMINOPHEN/HYDROcodone 325 MG/5 MG TAB PO PRN ×2 (11:09→23:47)
[2017-02-16 12:00] VITALS: BP 121/69; PULSE 75; RESP 18; TEMP 96.5; O2SAT 95
[2017-02-16] MEDS ORDERED: amLODIPine BESYLATE 5 MG TAB PO ONE (13:45)
[2017-02-16] MEDS: LISINOPRIL 10 MG TAB PO SCH (13:55)
--- NOTE | 2017-02-16 14:10 | HHI.PR ---
Subjective Remarks patient pleasantly confused denies cp/sob pain controlled BP very elevated Objective Vitals Vital Signs Date Time Temp Pulse Resp B/P Pulse Ox O2 Delivery O2 Flow Rate FiO2 02/16/17 08:00 96.8 76 18 182/92 96 02/16/17 04:00 97.1 68 18 161/90 95 02/16/17 00:00 98.2 86 19 153/81 93 02/15/17 22:00 98.0 81 19 205/95 93 02/15/17 21:54 75 158/79 02/15/17 18:53 Room Air 02/15/17 15:33 96.5 68 17 179/90 95 I/O 02/15/17 02/15/17 02/15/17 02/16/17 02/16/17 02/16/17 07:00 15:00 23:00 07:00 15:00 23:00 Intake Total 490 ml 1684 ml 1026 ml 722 ml 191 ml Output Total 250 ml Balance 490 ml 1434 ml 1026 ml 722 ml 191 ml Intake Oral 0 ml 500 ml 480 ml 300 ml IV Total 490 ml 384 ml 546 ml 191 ml Packed Cells 422 ml Other 800 ml Output Urine Total 200 ml Estimated Blood Loss 50 ml # Voids 3 3 3 4 # Bowel Movements 0 0 0 0 Result Diagram: 02/16/17 0542 02/15/17 0643 Imaging Current Medications Medications (Trade) Dose Ordered Sig/Shalonda Route Start Time Stop Time Status Last Admin (07/27 NS 1000 ml Inj) 1,000 ml @ 75 mls/hr [id number] IV 02/14/17 18:22 02/15/17 20:32 (Tylenol) 650 mg Q4H PRN PO 02/14/17 18:30 02/15/17 10:46 (Zofran Inj) 4 mg Q6H PRN IVP 02/14/17 18:30 (Abi-Colace) 1 tab BID PO 02/14/17 21:00 02/16/17 11:08 (Milk Of Magnesia Liq) 30 ml Q12H PRN PO 02/14/17 18:30 02/15/17 20:29 (Senokot) 17.2 mg Q12H PRN PO 02/14/17 18:30 02/15/17 20:31 (Dulcolax Supp) 10 mg DAILY PRN RECTAL 02/14/17 18:30 (Lactulose Liq) 30 ml DAILY PRN PO 02/14/17 18:30 (Sinemet 25-100 Mg) 2 tab TID PO 02/15/17 09:00 02/16/17 17:25 (Tears Naturale Opth Soln) 1 drop BID PRN EACH EYE 02/14/17 18:30 (Eldepryl) 5 mg BID PO 02/14/17 21:00 02/16/17 11:08 (Zoloft) 25 mg DAILY PO 02/15/17 09:00 02/16/17 11:07 Patient Own Medication PT OWN MED: RESTASIS (CYCLOSPORI... BID EACH EYE 02/14/17 21:00 Hold (Proscar) 5 mg DAILY PO 02/15/17 09:00 02/16/17 11:08 (Protonix) 40 mg DAILY PO 02/15/17 09:00 02/16/17 11:08 Quetiapine Fumarate 50 mg 50 mg HS PO 02/14/17 21:00 02/15/17 20:31 Lactated Ringer's 1,000 ml @ 30 mls/hr Q24H PRN IV 02/14/17 20:30 02/17/17 20:29 (NS 500 ml Inj) 500 ml @ 30 mls/hr [id number] PRN IV 02/14/17 20:30 02/17/17 20:29 (NS Flush) 2 ml UNSCH PRN IV FLUSH 02/15/17 08:30 (NS Flush) 2 ml BID IV FLUSH 02/15/17 09:00 02/15/17 20:32 (Lovenox Inj) 30 mg Q24H SQ 02/15/17 21:00 02/15/17 20:31 ([place] 5-325 Mg) 1 tab Q3H PRN PO 02/15/17 08:30 02/16/17 11:09 (Morphine Inj) 3 mg Q3H PRN IV PUSH 02/15/17 08:30 (Vitamin D3) 5,000 units DAILY PO 02/15/17 09:00 02/16/17 11:08 (Vasotec Inj) 1.25 mg Q6H PRN IV PUSH 02/15/17 18:30 02/16/17 04:57 (Norvasc) 10 mg DAILY PO 02/17/17 09:00 (Prinivil) 10 mg DAILY PO 02/16/17 13:45 02/16/17 13:55 Objective Remarks GENERAL: This is a well-nourished, well-developed patient, in no apparent distress. Awake and alert. SKIN: No rashes, ecchymoses or lesions. Cool and dry. HEAD: Atraumatic. Normocephalic. No temporal or scalp tenderness. EYES: Pupils equal round and reactive. Extraocular motions intact. No scleral icterus. No injection or drainage. ENT: Nose without bleeding or purulent drainage. Throat without erythema, tonsillar hypertrophy or exudate. Uvula midline. Airway patent. NECK: Trachea midline. No lymphadenopathy. Supple, nontender, no meningeal signs. CARDIOVASCULAR: Regular rate and rhythm without murmurs, gallops, or rubs. RESPIRATORY: Clear to auscultation. Breath sounds equal bilaterally. No wheezes , rales, or rhonchi. GASTROINTESTINAL: Abdomen soft, non-tender, nondistended. No hepato-splenomegaly , or palpable masses. No guarding. MUSCULOSKELETAL: 4th digit on left hand is splinted. Posterior tibial and Dorsalis pedis pulses +2 bilaterally. Hand tremors noted. There is a surgical dressing over the left hip which is C/D/I. NEUROLOGICAL: Awake and alert. Normal speech. Procedures sp left hi pinning Medications and IVs Current Medications Medications (Trade) Dose Ordered Sig/Shalonda Route Start Time Stop Time Status Last Admin (07/27 NS 1000 ml Inj) 1,000 ml @ 75 mls/hr [id number] IV 02/14/17 18:22 02/15/17 20:32 (Tylenol) 650 mg Q4H PRN PO 02/14/17 18:30 02/15/17 10:46 (Zofran Inj) 4 mg Q6H PRN IVP 02/14/17 18:30 (Abi-Colace) 1 tab BID PO 02/14/17 21:00 02/16/17 11:08 (Milk Of Magnesia Liq) 30 ml Q12H PRN PO 02/14/17 18:30 02/15/17 20:29 (Senokot) 17.2 mg Q12H PRN PO 02/14/17 18:30 02/15/17 20:31 (Dulcolax Supp) 10 mg DAILY PRN RECTAL 02/14/17 18:30 (Lactulose Liq) 30 ml DAILY PRN PO 02/14/17 18:30 (Sinemet 25-100 Mg) 2 tab TID PO 02/15/17 09:00 02/16/17 17:25 (Tears Naturale Opth Soln) 1 drop BID PRN EACH EYE 02/14/17 18:30 (Eldepryl) 5 mg BID PO 02/14/17 21:00 02/16/17 11:08 (Zoloft) 25 mg DAILY PO 02/15/17 09:00 02/16/17 11:07 Patient Own Medication PT OWN MED: RESTASIS (CYCLOSPORI... BID EACH EYE 02/14/17 21:00 Hold (Proscar) 5 mg DAILY PO 02/15/17 09:00 02/16/17 11:08 (Protonix) 40 mg DAILY PO 02/15/17 09:00 02/16/17 11:08 Quetiapine Fumarate 50 mg 50 mg HS PO 02/14/17 21:00 02/15/17 20:31 Lactated Ringer's 1,000 ml @ 30 mls/hr Q24H PRN IV 02/14/17 20:30 02/17/17 20:29 (NS 500 ml Inj) 500 ml @ 30 mls/hr [id number] PRN IV 02/14/17 20:30 02/17/17 20:29 (NS Flush) 2 ml UNSCH PRN IV FLUSH 02/15/17 08:30 (NS Flush) 2 ml BID IV FLUSH 02/15/17 09:00 02/15/17 20:32 (Lovenox Inj) 30 mg Q24H SQ 02/15/17 21:00 02/15/17 20:31 ([place] 5-325 Mg) 1 tab Q3H PRN PO 02/15/17 08:30 02/16/17 11:09 (Morphine Inj) 3 mg Q3H PRN IV PUSH 02/15/17 08:30 (Vitamin D3) 5,000 units DAILY PO 02/15/17 09:00 02/16/17 11:08 (Vasotec Inj) 1.25 mg Q6H PRN IV PUSH 02/15/17 18:30 02/16/17 04:57 (Norvasc) 10 mg DAILY PO 02/17/17 09:00 (Prinivil) 10 mg DAILY PO 02/16/17 13:45 02/16/17 13:55 A/P Problem List: (1) Finger dislocation ICD Code: S63.259A Status: Acute (2) Fracture of femoral neck, left, closed ICD Code: S72.002A Status: Acute (3) Uncontrolled hypertension ICD Code: I10 Status: Acute (4) Parkinson's disease ICD Code: G20 Status: Acute Assessment and Plan 76-year-old male with past medical history significant for Parkinson's disease, orthostatic hypotension, vitamin D deficiency, BPH, anxiety disorder and osteoporosis who presented to [facility] ED complaints of left hip pain following a fall. Left femoral neck fracture status post fall - xray of the left hip personally reviewed revealing left femoral neck fracture - Ortho consulted - patient sp Left hip pinning on 02/15/17 - Continue pain management as per orthopedic surgery recommendations. - Patient clear for DC Orthostatic hypotension - Patient Hypertensive. - Continue to hold Midodrine. Uncontrolled HTN - BP severely elevated with a SBP the 170 to 180's. - Will start patient on amlodipine 5 mg po daily, Start IV Vasotec PRN. - 02/16 BP still severely elevated - Will increase amlodipine to 5 mg po daily and start lisinopril 10 mg po daily. Parkinson's disease - Continue Sinemet and Eldepryl Discharge Planning Poss Dc in am to rehab pending stabilization of BP Problem Qualifiers (1) Finger dislocation: Qualified Code: S63.259A - Finger dislocation, initial encounter Victorino Dawson MD Feb 16, 2017 14:10
[2017-02-16 16:00] VITALS: BP 118/70; PULSE 86; RESP 18; TEMP 96.8; O2SAT 94
[2017-02-16 20:35] VITALS: BP 179/94; PULSE 74; RESP 17; TEMP 97; O2SAT 96
[2017-02-16] MEDS: SENNOSIDES 8.6 MG TAB PO PRN (23:44)
[2017-02-16] MEDS: MAGNESIUM HYDROXIDE SUSP 30 ML CUP PO PRN (23:45)
[2017-02-16] MEDS: QUEtiapine FUMARATE 25 MG TAB PO SCH (23:45)
[2017-02-16] MEDS: ENOXAPARIN SODIUM 30 MG/0.3 ML SYRINGE SQ SCH (23:45)
[2017-02-17 00:45] VITALS: BP 137/70; PULSE 87; RESP 17; TEMP 96.7; O2SAT 96
[2017-02-17 04:45] VITALS: BP 113/69; PULSE 58; RESP 17; TEMP 97.2; O2SAT 99
--- NOTE | 2017-02-17 06:53 | PD.ORT.PN ---
Subjective Subjective Remarks POD 2 s/p Left hip PCP resting comfortably no changes Objective Vitals Vital Signs Date Time Temp Pulse Resp B/P Pulse Ox O2 Delivery O2 Flow Rate FiO2 02/17/17 04:45 97.2 58 17 113/69 99 02/17/17 00:45 96.7 87 17 137/70 96 02/16/17 20:35 97.0 74 17 179/94 96 02/16/17 19:23 Room Air 02/16/17 16:00 96.8 86 18 118/70 94 02/16/17 12:00 96.5 75 18 121/69 95 02/16/17 08:00 96.8 76 18 182/92 96 I/O 02/16/17 02/16/17 02/16/17 02/17/17 02/17/17 02/17/17 07:00 15:00 23:00 07:00 15:00 23:00 Intake Total 722 ml 671 ml 0 ml Balance 722 ml 671 ml 0 ml Intake Oral 300 ml 480 ml 0 ml IV Total 191 ml Packed Cells 422 ml # Voids 4 2 2 # Bowel Movements 0 0 0 Result Diagram: 02/16/17 0542 02/15/17 0643 Imaging Last 72 hours Impressions Hip and Pelvis X-Ray 02/14/17 0000 Signed Impressions: Service Date/Time: Tuesday, February 14, 2017 13:59 - CONCLUSION: Femoral neck fracture. Kevin Rajput MD Hand X-Ray 02/14/17 0000 Signed Impressions: Service Date/Time: Tuesday, February 14, 2017 14:01 - CONCLUSION: No definite fracture is seen for technique. Kevin Rajput MD Objective Remarks Bilateral upper extremities: Full range of motion and neurovascularly intact. Right lower extremity: Full range of motion and neurovascularly intact Left lower extremity: Clean dry dressings intact. Minimal swelling. no pain to palpation of knee or ankle. Distally intact sensation. Cogwheel rigidity through range of motion. Assessment & Plan Assessment and Plan 1) Minimally displaced left femoral neck fracture s/p PCP POD 2 PT toe-touch weightbearing left lower extremity Lovenox Incentive spirometry Plan for discharge to rehabilitation when bed available ortho clear for DC Follow-up appointment with Dr. Sanders or PA in 2 weeks Rojelio Man Feb 17, 2017 06:53
[2017-02-17] MEDS ORDERED: WALKER/ADULT/FO1 MIS (06:55)
[2017-02-17] MEDS ORDERED: NORC5TAB PO (06:55)
[2017-02-17] MEDS ORDERED: XARE10TA PO (06:55)
[2017-02-17 08:00] VITALS: BP 108/59; PULSE 64; RESP 18; TEMP 96.8; O2SAT 99
[2017-02-17] MEDS: ACETAMINOPHEN/HYDROcodone 325 MG/5 MG TAB PO PRN ×2 (08:47→12:50)
[2017-02-17] MEDS: FINASTERIDE 5 MG TAB PO SCH (08:47)
[2017-02-17] MEDS: DOCUSATE SODIUM 50 MG/SENNA 8.6 MG TAB PO SCH (08:48)
[2017-02-17] MEDS: SERTRALINE HCL 50 MG TAB PO SCH (08:48)
[2017-02-17] MEDS: SELEGILINE HCL 5 MG CAP PO SCH (08:48)
[2017-02-17] MEDS: PANTOPRAZOLE SOD 40 MG DELAYED RELEASE TAB PO SCH (08:48)
[2017-02-17] MEDS: CHOLECALCIFEROL (VIT D3) 5000 UNIT CAP PO SCH (08:48)
[2017-02-17] MEDS: LISINOPRIL 10 MG TAB PO SCH (08:49)
[2017-02-17] MEDS: CARBIDOPA/LEVODOPA 25 MG/100 MG TAB PO SCH ×2 (08:49→12:49)
[2017-02-17] MEDS: SODIUM CHLORIDE 0.9% FLUSH 10 ML FLUSH IV FLUSH SCH (09:00)
[2017-02-17 11:46] VITALS: BP 92/62; PULSE 62; RESP 18; TEMP 95.3; O2SAT 97
[2017-02-17] MEDS ORDERED: AMLO10 PO (11:50)
[2017-02-17] MEDS ORDERED: LISI10TA3 PO (11:50)
--- NOTE | 2017-02-17 11:51 | HHI.DCPOC ---
Discharge Care Plan Diagnosis: (1) Hip fracture (2) Parkinson's disease (3) Finger dislocation (4) Uncontrolled hypertension (5) Fracture of femoral neck, left, closed Goals to Promote Your Health * To prevent worsening of your condition and complications * To maintain your health at the optimal level Directions to Meet Your Goals Take your medications as prescribed Follow your dietary instruction Follow activity as directed Keep your appointments as scheduled Take your immunizations and boosters as scheduled If your symptoms worsen call your PCP, if no PCP go to Urgent Care Center or Emergency Room Smoking is Dangerous to Your Health. Avoid second hand smoke Call the 24-hour hour crisis hotline for domestic abuse at Victorino Dawson MD Feb 17, 2017 11:51
--- NOTE | 2017-02-17 12:03 | HHI.DS ---
Discharge Summary Admission Date Feb 14, 2017 at 15:37 Discharge Date: Feb 17, 2017 Admitting Diagnosis Hip Fracture (1) Finger dislocation ICD Code: S63.259A (2) Fracture of femoral neck, left, closed ICD Code: S72.002A (3) Uncontrolled hypertension ICD Code: I10 (4) Parkinson's disease ICD Code: G20 Procedures sp left hi pinning Brief History - From Admission Written by rAiela Cleveland PA-C acting as scribe for Dr. Amezcua on 02/14/17 at 16:45. This is a 76-year-old male with past medical history significant for Parkinson' s disease, orthostatic hypotension, vitamin D deficiency, BPH, anxiety disorder and osteoporosis who presented to [facility] ED complaints of left hip pain following a fall. Patient states he was trying to help his get a walker into the back of their truck when he fell onto the left hand and left hip. He denies any head injury. He denies any loss of consciousness. Imaging obtained in the ED revealed a complete fracture left femoral neck with slight valgus angulation. Imaging of the left hand showed no fracture or dislocation. Patient has elevated blood pressure at this time with a 182/88. He is complaining of uncontrolled left hip pain. CBC/BMP: 02/16/17 0542 02/15/17 0643 Significant Findings Laboratory Tests Test 02/14/17 02/15/17 02/15/17 02/16/17 13:45 06:43 06:53 05:42 Red Blood Count 4.42 MIL/MM3 4.28 MIL/MM3 (4.50-5.90) (4.50-5.90) Blood Urea Nitrogen 22 MG/DL (7-18) 19 MG/DL (7-18) Estimat Glomerular Filtration 74 ML/MIN (>89) 79 ML/MIN (>89) Rate Total Bilirubin 1.2 MG/DL (0.2-1.0) Alkaline Phosphatase 44 U/L (45-117) Total Protein 6.3 GM/DL (6.4-8.2) Platelet Count 123 TH/MM3 (150-450) Mean Platelet Volume 6.7 FL (7.0-11.0) Neutrophils (%) (Auto) 78.2 % (16.0-70.0) Monocytes (%) (Auto) 8.2 % (0.0-8.0) Lymphocytes # (Auto) 0.8 TH/MM3 (1.0-4.8) Hematocrit 37.9 % (39.0-51.0) Imaging Last Impressions Hip X-Ray 02/15/17 0000 Signed Impressions: Service Date/Time: Wednesday, February 15, 2017 08:10 - CONCLUSION: Status post ORIF in anatomic alignment. Tian Murphy MD FACR Hip and Pelvis X-Ray 02/14/17 0000 Signed Impressions: Service Date/Time: Tuesday, February 14, 2017 13:59 - CONCLUSION: Femoral neck fracture. Kevin Rajput MD Hand X-Ray 02/14/17 0000 Signed Impressions: Service Date/Time: Tuesday, February 14, 2017 14:01 - CONCLUSION: No definite fracture is seen for technique. Kevin Rajput MD PE at Discharge GENERAL: This is a well-nourished, well-developed patient, in no apparent distress. Awake and alert. SKIN: No rashes, ecchymoses or lesions. Cool and dry. HEAD: Atraumatic. Normocephalic. No temporal or scalp tenderness. EYES: Pupils equal round and reactive. Extraocular motions intact. No scleral icterus. No injection or drainage. ENT: Nose without bleeding or purulent drainage. Throat without erythema, tonsillar hypertrophy or exudate. Uvula midline. Airway patent. NECK: Trachea midline. No lymphadenopathy. Supple, nontender, no meningeal signs. CARDIOVASCULAR: Regular rate and rhythm without murmurs, gallops, or rubs. RESPIRATORY: Clear to auscultation. Breath sounds equal bilaterally. No wheezes , rales, or rhonchi. GASTROINTESTINAL: Abdomen soft, non-tender, nondistended. No hepato-splenomegaly , or palpable masses. No guarding. MUSCULOSKELETAL: 4th digit on left hand is splinted. Posterior tibial and Dorsalis pedis pulses +2 bilaterally. Hand tremors noted. There is a surgical dressing over the left hip which is C/D/I. NEUROLOGICAL: Awake and alert. Normal speech. Pt Condition on Discharge: Stable Discharge Disposition: Discharge to SNF Discharge Time: > 30 minutes Discharge Instructions DIET: Follow Instructions for: Diabetic Diet Activities you can perform: See Additionl Instruction Other Activity Instructions: out of bed with assistance As per PT instructions Follow up Referrals: Orthopedics - 03/03/17 @ [facility] with Naun Raza MD New Medications: Hydrocodone-Acetaminophen ([place]) 5-325 mg Tab 1 TAB PO Q4H PRN PAIN #60 Ref 0 TAB Rivaroxaban (Xarelto) 10 Mg Tab 10 MG PO DAILY Blood Clot Prevention #14 Ref 0 TAB Walker/Adult/Folding (Walker/Adult/Folding) 1 Mis Mis 1 EA .ROUTE DIRECTED #1 Ref 0 EA Amlodipine (Norvasc) 10 Mg Tab 5 MG PO DAILY Blood Pressure Management #31 TAB Lisinopril (Lisinopril) 10 Mg Tab 10 MG PO DAILY Blood Pressure Management #31 TAB Continued Medications: Acetaminophen (Tylenol) 325 Mg Tab 650 MG PO Q6H PRN PAIN Ref 0 TAB Carbidopa-Levodopa (Sinemet) 25-100 Mg Tab 2 TAB PO TID Parkinson Disease Mgmt #90 Ref 0 TAB Cholecalciferol (Vitamin D-3) 2,000 Unit Tab 2000 UNITS PO DAILY Nutritional Supplement Cyclosporine Opth 0.05% (Restasis Opth 0.05%) 0.05% Emul 1 DROP EACH EYE BID Dry Eye #1 Ref 0 BOX Dutasteride (Avodart) 0.5 Mg Cap 0.5 MG PO DAILY Manage Prostate Problems #30 Ref 0 CAP Omeprazole (Omeprazole) 40 Mg Cap 40 MG PO DAILY Heartburn #30 Ref 0 CAP Polyvinyl Alcohol Opth Drops (Artificial Tears Opth Drops) 1.4% Soln 1 DROP EACH EYE BID PRN DRY EYE Ref 0 BOTTLE Quetiapine (Seroquel) 50 Mg Tab 50 MG PO HS Anxiety #30 Ref 0 TAB Selegiline (Eldepryl) 5 Mg Cap 5 MG PO BID Parkinson Disease Mgmt #60 Ref 0 CAP Sertraline (Zoloft) 25 Mg Tab 25 MG PO DAILY Anxiety #30 Ref 0 TAB Discontinued Medications: Midodrine (Midodrine) 5 Mg Tab 5 MG PO TID Control Low Blood Pressure #90 Ref 0 TAB Victorino Dawson MD Feb 17, 2017 12:03
[2017-02-17] MEDS: SODIUM CHLOR 0.45% 1000 ML INJ 1,000 ML IV SCH (13:02)
[2017-02-17 13:52] VITALS: O2SAT 96
[2017-02-17 15:42] VITALS: BP 131/73; PULSE 66; RESP 18; TEMP 96.2; O2SAT 97
== END 2017-02-17 17:07 | DRG 482 ==
LOC: NEPE 13:31 → NEDA 15:37 → N06A 19:53
PROVIDERS: ADMIT Hospitalist; ATTEND Hospitalist
PROC: 0QH734Z Insertion of Internal Fixation Device into Left Upper Femur, Percutaneous Approach (ICD-10-PCS; principal; 2017-02-15 07:37)
DX: S72.002A Fracture of unspecified part of neck of left femur, initial encounter for closed fracture (principal); G20 Parkinson's disease; F41.9 Anxiety disorder, unspecified; N40.0 Benign prostatic hyperplasia without lower urinary tract symptoms; I95.1 Orthostatic hypotension; I45.6 Pre-excitation syndrome; K21.9 Gastro-esophageal reflux disease without esophagitis; M81.0 Age-related osteoporosis without current pathological fracture; W01.0XXA Fall on same level from slipping, tripping and stumbling without subsequent striking against object, initial encounter
CPT/HCPCS: 26755; 73130; 73502; 76000; 80048; 80053; 82306; 85014; 85018; 85025; 85610; 85730; 93005; C1713; J0131; J0690; J1580; J1650; J2250; J2270; J2405; J2710; J3010; J3370; J7050

== ENCOUNTER 2017-04-06 11:21 | Emergency (ER) | payer MEDICARE, OTHER ==
[~2017-04-06 11:21] MED LIST: AMLO10 PO; AVOD0.5C PO; CHOL1TAB42 PO; LISI10TA3 PO; NORC5TAB PO; OMEP40CA2 PO; POLY99.0 EACH EYE; REST0.05 EACH EYE; SERO50TA PO; SINE25TA PO; TYLE325T PO; WALKER/ADULT/FO1 MIS; XARE10TA PO; ZOLO25TA PO; [UNRECOGNIZED DRUG - CODE] PO
[2017-04-06 11:46] VITALS: BP 123/59; PULSE 75; RESP 16; TEMP 97.3; O2SAT 99
[2017-04-06] MEDS ORDERED: MORPHINE SULFATE 2 MG/ML INJ IV PUSH ONE (14:00)
[2017-04-06] MEDS ORDERED: ONDANSETRON HCL 4 MG/2 ML VIAL IV PUSH ONE (14:00)
[2017-04-06 14:07] VITALS: BP 151/80; PULSE 64; RESP 16; O2SAT 99
[2017-04-06 14:28] LABS: AUTOMATED NEUTROPHIL # 6.3 TH/MM3 (1.8-7.7); BASOPHIL % 0.5 % (0.0-2.0); EOSINOPHIL % 0.3 % (0.0-4.0); HEMATOCRIT 34.8 % (39.0-51.0); LYMPH % 13.6 % (9.0-44.0); LYMPHOCYTE # 1.1 TH/MM3 (1.0-4.8); MEAN CELL VOLUME 91.6 FL (80.0-100.0); MEAN CORPUSCULAR HEMOGLOBIN 31.6 PG (27.0-34.0); MEAN CORPUSCULAR HGB CONC 34.5 % (32.0-36.0); MONO % 4.6 % (0.0-8.0); PLATELET COUNT 295 TH/MM3 (150-450); RED CELL DISTRIBUTION WIDTH 12.1 % (11.6-17.2); WHITE BLOOD COUNT 7.8 TH/MM3 (4.0-11.0)
[2017-04-06] MEDS ORDERED: MORPHINE SULFATE 4 MG/ML INJ IV ONE (14:30)
--- NOTE | 2017-04-06 14:33 | PD ---
HPI Chief Complaint: Fall Time Seen by Provider: 13:46 Travel History International Travel<30 days: No Contact w/Intl Traveler<30days: No Traveled to known affect area: No History of Present Illness HPI The patient is a 76-year-old male who [facility] emergency department [facility] a [facility] after a [facility]. The patient states that his balance is been off for several weeks, he lost balance earlier today, fell backwards onto his buttocks. The patient denies any loss of consciousness or neck pain. He does state he had surgery several months ago performed at [facility] on his left hip. He does note Limited ability to move the left lower extremity secondary to pain. The patient is a somewhat limited and poor historian but does not know the current month or year. He denies any headache, neck pain, chest pain, shortness breath, nausea, vomiting, or abdominal pain. He does complain of pain on the left lower extremity when he moves the hip. PFSH Past Medical History Arthritis: Yes (osteoporosis) Anxiety: Yes Dementia: Yes Genitourinary: Yes (BPH) Parkinson's Disease: Yes Tetanus Vaccination: < 5 Years Influenza Vaccination: Yes Past Surgical History Pacemaker: No Other Surgery: Yes (hemorrhoidectomy) Social History Alcohol Use: No Tobacco Use: No Substance Use: No Allergies-Medications (Allergen,Severity, Reaction): Coded Allergies: Sulfa (Sulfonamide Antibiotics) (Unverified Allergy, Mild, 03/09/17) Reported Meds & Prescriptions Reported Meds & Active Scripts Active Anderson (Hydrocodone-Acetaminophen) 5-325 mg Tab 1 Tab PO Q4H PRN Reported Tylenol (Acetaminophen) 325 Mg Tab 650 Mg PO Q6H PRN Artificial Tears Opth Drops (Polyvinyl Alcohol) 1.4% Soln 1 Drop EACH EYE BID PRN Sinemet (Carbidopa-Levodopa) 25-100 Mg Tab 2 Tab PO TID Eldepryl (Selegiline HCl) 5 Mg Cap 5 Mg PO BID Restasis Opth 0.05% (Cyclosporine Opth 0.05%) 0.05% Emul 1 Drop EACH EYE BID Vitamin D-3 (Cholecalciferol) 2,000 Unit Tab 2,000 Units PO DAILY Zoloft (Sertraline HCl) 25 Mg Tab 50 Mg PO DAILY Seroquel (Quetiapine Fumarate) 50 Mg Tab 50 Mg PO HS Omeprazole 40 Mg Cap 40 Mg PO DAILY Avodart (Dutasteride) 0.5 Mg Cap 0.5 Mg PO DAILY Review of Systems Except as stated in HPI: all other systems reviewed are Neg HENT: No: Headaches, Neck Pain Cardiovascular: No: Chest Pain or Discomfort Respiratory: No: Shortness of Breath Gastrointestinal: No: Nausea, Vomiting, Abdominal Pain Musculoskeletal: Positive: Limited ROM, Pain Neurologic: No: Paresthesia, Sensory Disturbance Physical Exam Narrative GENERAL: Awake, alert, 76-year-old male appears his stated age and is in no acute respiratory distress. SKIN: Focused skin assessment warm/dry. HEAD: Atraumatic. Normocephalic. EYES: Pupils equal and round. No scleral icterus. No injection or drainage. ENT: No nasal bleeding or discharge. Slightly dry mucous membranes. NECK: Trachea midline. No JVD. CARDIOVASCULAR: Regular rate and rhythm. No murmur appreciated. RESPIRATORY: No accessory muscle use. Clear to auscultation. Breath sounds equal bilaterally. GASTROINTESTINAL: Abdomen soft, non-tender, nondistended. No rebound tenderness. MUSCULOSKELETAL: The left lower extremity appears slightly shortened compared to the right. Patient has limited ability to flex the left hip and knee. There appears to be a scar in the lateral aspect of the left hip. No tenderness over the distal femur or knee. Back: No tenderness over the thoracic or lumbar vertebrae. Superficial stage I sacral decubitus ulcer. NEUROLOGICAL: Awake and alert. No obvious cranial nerve deficits. Motor grossly within normal limits. Normal speech. Patient is oriented to person and day of the week, but does not know the current month or year. PSYCHIATRIC: Appropriate mood and affect; insight and judgment normal. Data Data Last Documented VS Vital Signs Date Time Temp Pulse Resp B/P (MAP) Pulse Ox O2 Delivery O2 Flow Rate FiO2 04/06/17 15:55 16 04/06/17 14:41 61 151/80 (103) 100 Room Air 04/06/17 11:46 97.3 Orders Orders Complete Blood Count With Diff (04/06/17 13:56) Comprehensive Metabolic Panel (04/06/17 13:56) Urinalysis - C+S If Indicated (04/06/17 13:56) Hip, Uni(Ap&Lat) W Ap Pelvis (04/06/17 ) Ondansetron Inj (Zofran Inj) (04/06/17 14:00) Morphine Inj (Morphine Inj) (04/06/17 14:30) Cath For Specimen (04/06/17 15:18) Urine Culture (04/06/17 15:35) Ciprofloxacin 400 Mg Premix (Cipro 400 M (04/06/17 16:30) Labs Laboratory Tests Test 04/06/17 14:25 04/06/17 15:35 White Blood Count 7.8 TH/MM3 Red Blood Count 3.80 MIL/MM3 Hemoglobin 12.0 GM/DL Hematocrit 34.8 % Mean Corpuscular Volume 91.6 FL Mean Corpuscular Hemoglobin 31.6 PG Mean Corpuscular Hemoglobin Concent 34.5 % Red Cell Distribution Width 12.1 % Platelet Count 295 TH/MM3 Mean Platelet Volume 5.9 FL Neutrophils (%) (Auto) 81.0 % Lymphocytes (%) (Auto) 13.6 % Monocytes (%) (Auto) 4.6 % Eosinophils (%) (Auto) 0.3 % Basophils (%) (Auto) 0.5 % Neutrophils # (Auto) 6.3 TH/MM3 Lymphocytes # (Auto) 1.1 TH/MM3 Monocytes # (Auto) 0.4 TH/MM3 Eosinophils # (Auto) 0.0 TH/MM3 Basophils # (Auto) 0.0 TH/MM3 CBC Comment DIFF FINAL Differential Comment Blood Urea Nitrogen 24 MG/DL Creatinine 1.10 MG/DL Random Glucose 89 MG/DL Total Protein 6.6 GM/DL Albumin 3.5 GM/DL Calcium Level 8.8 MG/DL Alkaline Phosphatase 80 U/L Aspartate Amino Transf (AST/SGOT) 22 U/L Alanine Aminotransferase (ALT/SGPT) 8 U/L Total Bilirubin 0.5 MG/DL Sodium Level 140 MEQ/L Potassium Level 4.0 MEQ/L Chloride Level 104 MEQ/L Carbon Dioxide Level 28.2 MEQ/L Anion Gap 8 MEQ/L Estimat Glomerular Filtration Rate 65 ML/MIN Urine Collection Type CATH Urine Color YELLOW Urine Turbidity CLEAR Urine pH 7.0 Urine Specific [place] 1.024 Urine Protein TRACE mg/dL Urine Glucose (UA) NEG mg/dL Urine Ketones TRACE mg/dL Urine Occult Blood NEG Urine Nitrite POS Urine Bilirubin NEG Urine Leukocyte Esterase MOD Urine RBC 0-3 /hpf Urine WBC 20-24 /hpf Urine Bacteria MANY /hpf Microscopic Urinalysis Comment CATH-CULTURE IND Urine Collection Time 15:35 [facility] Medical Decision Making Medical Screen Exam Complete: Yes Emergency Medical Condition: Yes Medical Record Reviewed: Yes Interpretation(s) Last Impressions Hip and Pelvis X-Ray 04/06/17 0000 Signed Impressions: Service Date/Time: Thursday, April 06, 2017 14:53 - CONCLUSION: Status post open ridged internal fixation. Karl Huerta MD Laboratory Tests Test 04/06/17 14:25 04/06/17 15:35 White Blood Count 7.8 TH/MM3 Red Blood Count 3.80 MIL/MM3 Hemoglobin 12.0 GM/DL Hematocrit 34.8 % Mean Corpuscular Volume 91.6 FL Mean Corpuscular Hemoglobin 31.6 PG Mean Corpuscular Hemoglobin Concent 34.5 % Red Cell Distribution Width 12.1 % Platelet Count 295 TH/MM3 Mean Platelet Volume 5.9 FL Neutrophils (%) (Auto) 81.0 % Lymphocytes (%) (Auto) 13.6 % Monocytes (%) (Auto) 4.6 % Eosinophils (%) (Auto) 0.3 % Basophils (%) (Auto) 0.5 % Neutrophils # (Auto) 6.3 TH/MM3 Lymphocytes # (Auto) 1.1 TH/MM3 Monocytes # (Auto) 0.4 TH/MM3 Eosinophils # (Auto) 0.0 TH/MM3 Basophils # (Auto) 0.0 TH/MM3 CBC Comment DIFF FINAL Differential Comment Blood Urea Nitrogen 24 MG/DL Creatinine 1.10 MG/DL Random Glucose 89 MG/DL Total Protein 6.6 GM/DL Albumin 3.5 GM/DL Calcium Level 8.8 MG/DL Alkaline Phosphatase 80 U/L Aspartate Amino Transf (AST/SGOT) 22 U/L Alanine Aminotransferase (ALT/SGPT) 8 U/L Total Bilirubin 0.5 MG/DL Sodium Level 140 MEQ/L Potassium Level 4.0 MEQ/L Chloride Level 104 MEQ/L Carbon Dioxide Level 28.2 MEQ/L Anion Gap 8 MEQ/L Estimat Glomerular Filtration Rate 65 ML/MIN Urine Collection Type CATH Urine Color YELLOW Urine Turbidity CLEAR Urine pH 7.0 Urine Specific [place] 1.024 Urine Protein TRACE mg/dL Urine Glucose (UA) NEG mg/dL Urine Ketones TRACE mg/dL Urine Occult Blood NEG Urine Nitrite POS Urine Bilirubin NEG Urine Leukocyte Esterase MOD Urine RBC 0-3 /hpf Urine WBC 20-24 /hpf Urine Bacteria MANY /hpf Microscopic Urinalysis Comment CATH-CULTURE IND Urine Collection Time 15:35 Differential Diagnosis differential diagnosis includes hip fracture, hip dislocation, pelvic fracture, sacroiliac fracture, lumbar fracture, hyponatremia, dehydration, UTI. Narrative Course IV was established, labs are drawn and sent, and the patient was placed on cardiac telemetry monitoring and continuous pulse oximetry monitoring. X-ray of the pelvis and left hip were obtained. X-ray of the pelvis and hips reveals postoperative changes, no evidence for acute injury. UA is positive for UTI, the patient was boot turner Cipro 400 mg intravenously. The patient currently resides in a [facility]ci, will be discharged back to the fci. Diagnosis Primary Impression: Accident due to mechanical fall without injury Qualified Codes: W19.XXXA - Unspecified fall, initial encounter Additional Impression: UTI (urinary tract infection) Qualified Codes: N39.0 - Urinary tract infection, site not specified Patient Instructions: General Instructions Additional Instructions: Discharge back to fci. Cipro as directed. Fall precautions. Follow- up with the orthopedist. Med/Other Pt SpecificInfo: Prescription(s) given Scripts Ciprofloxacin (Cipro) 500 Mg Tab 500 MG PO BID for Infection for 7 Days, #14 TAB 0 Refills Prov: Nate Ty MD 04/06/17 Disposition: 01 DISCHARGE HOME (discharge back to fci) Condition: Stable Nate Ty MD Apr 06, 2017 14:33
[2017-04-06 14:37] LABS: CHLORIDE 104 MEQ/L (98-107); SODIUM (NA) 140 MEQ/L (136-145)
[2017-04-06 14:41] VITALS: BP_SYST 151; BP_SYST 171; BP_DIAS 80; BP_DIAS 94; PULSE 61; PULSE 67; RESP 16; O2SAT 100
[2017-04-06 14:41] LABS: ANION GAP 8 MEQ/L (5-15); BICARBONATE 28.2 MEQ/L (21.0-32.0); BLOOD UREA NITROGEN 24 MG/DL (7-18)
[2017-04-06 14:44] LABS: ALT (GPT) 8 U/L (12-78); AST (GOT) 22 U/L (15-37); GLOMERULAR FILTRATION RATE 65 ML/MIN (>89)
[2017-04-06 14:45] LABS: TOTAL BILIRUBIN ADULT 0.5 MG/DL (0.2-1.0)
[2017-04-06 14:47] LABS: ALKALINE PHOSPHATASE 80 U/L (45-117)
[2017-04-06 15:08] LABS: HEMO FLAGS DIFF FINAL
--- NOTE | 2017-04-06 15:18 | RADRPT ---
EXAM DATE/TIME: 04/06/2017 14:53 [facility] COMPARISON: HIP LEFT (AP&LAT 2/3VWS) W AP PELVIS, February 14, 2017, 13:59. INDICATIONS : Status post open reduction internal fixation of left femoral neck fracture. MEDICAL HISTORY : None. SURGICAL HISTORY : Left hip pinning. ENCOUNTER: Initial ACUITY: 1 week PAIN SCORE: 6/10 LOCATION: Left hip. FINDINGS: AP and frog leg lateral views of the left hip were obtained and demonstrate interval placement of 3 l ag screws transfixing the femoral neck fracture. The fracture fragments are in anatomic alignment. CONCLUSION: Status post open ridged internal fixation. Karl Huerta MD on April 06, 2017 at 15:15 Board Certified Radiologist. This report was verified electronically.
[2017-04-06 15:44] LABS: BLOOD, URINE NEG (NEG); GLUCOSE,URINE NEG (NEG); KETONE, URINE TRACE mg/dL (NEG); NITRITE,URINE POS (NEG)
[2017-04-06 16:02] LABS: METHOD OF COLLECTION CATH; URINE COLOR YELLOW (YELLW/STRAW)
[2017-04-06 16:03] LABS: BACTERIA, URINE MANY /hpf; COMMENT (UR) CATH-CULTURE IND; CULTURE IF INDICATED CATH CULTURE IND; RBC, URINE 0-3 /hpf (0-3)
[2017-04-06] MEDS ORDERED: CIPR-9 PO (16:26)
[2017-04-06] MEDS ORDERED: CIPROFLOXACIN 400 MG PREMIX 200 ML IV ONE (16:30)
[2017-04-06 17:00] VITALS: BP 173/86; PULSE 69; RESP 16; O2SAT 97
[2017-04-06 18:40] VITALS: BP 161/82
== END 2017-04-06 19:03 | disposition home or self-care (01) ==
LOC: PHED 11:21
DX: M79.662 Pain in left lower leg (principal); W19.XXXA Unspecified fall, initial encounter; N39.0 Urinary tract infection, site not specified; N40.1 Benign prostatic hyperplasia with lower urinary tract symptoms; G20 Parkinson's disease; F03.90 Unspecified dementia, unspecified severity, without behavioral disturbance, psychotic disturbance, mood disturbance, and anxiety; R82.90 Unspecified abnormal findings in urine
CPT/HCPCS: 73502; 80053; 81001; 85025; 87077; 87086; 87186; 96365; 96375; 99284; J0744; J2270; J2405; P9612